=== PATIENT | female | born 1980 | race Caucasian/White ===

== ENCOUNTER → 2021-10-15 10:04 | Outpatient (CLI) | payer OTHER, SELFPAY ==
[2021-10-16 14:17] LABS: HSV 2 IGG AB 2.81 index (0.00-0.90); HSV1IGG < 0.91 index (0.00-0.90)
== END ==
PROVIDERS: PCP Physician Assistant; Referring Provider Obstetrics & Gynecology; Visit Provider Obstetrics & Gynecology
DX: N90.89 Other specified noninflammatory disorders of vulva and perineum (principal)
CPT/HCPCS: 36415; 86695; 86696

== ENCOUNTER → 2022-11-20 06:40 | Outpatient (CLI) | payer OTHER, SELFPAY ==
--- NOTE | 2022-11-20 06:41 | DI.US.S_ITS ---
PROCEDURE: US PELVIC COMPLETE INDICATIONS: IRREGULAR HEAVY MENSES TECHNIQUE: Real-time scanning was performed of the pelvic organs, with image documentation. Additional endovaginal scanning was necessary due to incomplete visualization of the adnexal and endometrial structures by transabdominal scanning. COMPARISON: None. FINDINGS: Uterus: Uterus is anteverted and normal in size at 10.8 x 6.1 x 7.7 cm. The myometrium is homogeneous. The endometrium measures 9.6 mm combined thickness. Ovaries: The right ovary measures 3.6 x 2.1 x 3.2 cm, with a calculated ovarian volume of 12.3 cc. The left ovary measures 3.3 x 2.1 x 3.5 cm, with a calculated ovarian volume of 13 cc. The ovaries have a normal sonographic appearance. Less than 12 follicles can be seen in each ovary. No adnexal masses are seen. Other: No pathologic free abdominal or pelvic fluid. IMPRESSION: Unremarkable pelvic ultrasound in a premenopausal patient. We strive to produce accurate, complete, and clear reports of imaging services. To assist us in improving patient care, this report was composed using standard report templates and voice recognition software. Therefore, it may contain abnormal punctuation, insertions and/or omissions. Occasional wrong-word or sound-alike substitutions may occur. Though we review the report and make efforts to correct it, we do recommend that the report be read carefully in proper context to recognize any text inaccuracies. Dictated by: Tamia Seymour M.D. on 11/20/2022 at 11:10 Approved by: Tamia Seymour M.D. on 11/20/2022 at 11:11
== END ==
PROVIDERS: PCP Physician Assistant; Referring Provider Obstetrics & Gynecology; Visit Provider Obstetrics & Gynecology
DX: N92.6 Irregular menstruation, unspecified (principal)
CPT/HCPCS: 76830; 76856

== ENCOUNTER 2023-08-17 06:37 | Day surgery (SDC) | payer OTHER, SELFPAY ==
[2023-08-17] VITALS (8 sets, daily range): BP systolic 115–125; BP diastolic 73–79; PULSE 76–113; RESP 10–26; TEMP 36.3–37.1; O2SAT 99–100; BMI 32.4
--- NOTE | 2023-08-17 | PATH_ITS ---
[facility] Accession Number: [id number] No. of containers..01 Tissue . 01 Material submitted: . uterus - UTERUS AND BILATERAL FALLOPIAN TUBES . 01 Diagnosis: UTERUS AND BILATERAL FALLOPIAN TUBES; HYSTERECTOMY AND BILATERAL SALPINGECTOMY (WITHOUT CERVIX OR OVARIES): Benign uterine tissue fragments, 185 grams in aggregate. Proliferative phase endometrium without significant cytologic atypia, hyperplasia or malignancy. Benign leiomyoma without significant cytologic atypia, necrosis, or distinct mitotic activity. Focal area with possible adenomyosis. Benign fallopian tubes and paratubal cysts. [facility] 08/19/2023 1548 Local . 01 Electronically signed: . Jonathon Gay MD, Pathologist NPI- [id number] . 01 Gross description: . Received in formalin with two identifiers and uterus and bilateral fallopian tubes, is a fragmented uterus (185 grams, 13.8 x 11.2 x 4.4 cm in aggregate), with two unoriented, fimbriated fallopian tubes (5.6 x 0.5 cm and 5.5 x 0.7 cm), with no cervix or additional adnexa. . The serosa is jones and wrinkled with no evidence of hemorrhage or adhesions identified. The endometrium is jones to brown and velvety averaging 0.1 cm thick. The myometrium is jones and trabecular with a single well-circumscribed white whorled nodule identified measuring 0.9 cm in greatest dimension with no hemorrhage or necrosis identified. . The tubes have violaceous, smooth serosa with a cystic structure measuring 0.5 cm in greatest dimension filled with cloudy serous fluid located on the longer tube. Sectioning reveals unremarkable stellate lumen. . Clinical Research Specialist sections are submitted as follows: A1. Endometrium. A2: Serosa. A3: Nodule. A4: Longer fallopian tube to include one-half of bisected fimbriae and cross-sections. A5: [place] fallopain tube to include one-half of bisected fimbriae and cross-sections. ([id number]) /MCKAYLA 08/18/2023 0955 Local . 01 Pathologist provided ICD-10: N92.0 . 01 CPT . 070932 Specimen Comment: A courtesy copy of this report has been sent to [phone] Performed at: 01 [facility] [address] [place] [address], [place], [place] [id number] MD Tone Childs MD Phone: [phone]
[2023-08-17] MEDS: LACTATED RINGERS 1,000 ML 42 ML IV ×2 (07:20→10:35)
[2023-08-17] MEDS: ACETAMINOPHEN 325 MG TABLET 975 MG PO (07:24)
--- NOTE | 2023-08-17 07:37 | PM.PREOP ---
Pre-operative Note Interval Note History & Physical reviewed/Exam performed by Physician: Yes Changes to H&P: No H&P completed within 30 days and has changed as indicated here:: 08/12/23
[2023-08-17] MEDS: SCOPOLAMINE 1 PATCH TOP (07:41)
[2023-08-17] MEDS: CEFAZOLIN 2 GM/100 ML PREMIX 100 ML IV (08:03)
--- NOTE | 2023-08-17 08:24 | SUR.OPER ---
Lithotomy on padded OR bed. [place] Pad Positioner under torso. Head on pillow, arms padded and tucked at sides. Legs secured in padded yellow fins stirrups.
[2023-08-17] MEDS: ROPIVACAINE 0.2% PF 2 MG/ML 10ML AMP 20 ML INJ (08:33)
[2023-08-17] MEDS: BUPIVACAINE 0.5% (PF) 30 ML, EPINEPHrine 0.15 MG INJ (08:33)
--- NOTE | 2023-08-17 09:19 | P.OP_ITS ---
Operative Date/Time/Diagnoses Date of procedure: 08/17/23 Time of procedure: 09:19 Pre-op diagnosis: Menorrhagia Post-op diagnosis: same Procedure & Clinicians Procedure: Procedures Operation Date: 08/17/23 07:45 Actual Procedure Side Surgeon p Laparoscopic Supracervical Hysterectomy with bilateral salpingectomy Kajal Nguyen MD Indications: 43-year-old with menorrhagia Surgeon: Kajal Nguyen Automobile Repossessor: Stefania Stephenson Anesthesia Type: General and Local Operative Notes Findings: 10 week size anteverted uterus Normal tubes and ovaries Normal appendix Normal liver and gallbladder Closure Type: primary Specimen(s): left tube, right tube and uterus Applied: catheter (Removed at the end of the case) Estimated blood loss (mL): 25 Blood products transfused: none Procedure in detail: The patient was taken to the operating room where she was placed in the dorsal supine position. After adequate general endotracheal anesthesia was achieved, she was placed in the dorsal lithotomy position, and prepped and draped in the usual sterile fashion. A timeout was performed. A bivalve speculum was placed into the vagina and the anterior lip of the cervix grasped with a single-tooth tenaculum. The cervical os was sequentially dilated until the ZUMI uterine manipulator could pass easily into the endometrial cavity. The single-tooth tenaculum was removed from the anterior lip of the cervix, and the bivalve speculum was removed from the vagina. Attention was then turned to the abdomen where 6 mL of half percent Marcaine with epinephrine were injected in the umbilical fold. A 5 mm incision was made. The Verhees needle was placed into the peritoneal cavity, and its placement confirmed by aspiration and drop test. The Verees needle was removed. A 5 mm trocar was placed without difficulty. 2 other incisions were made 4 cm lateral to the umbilicus after 5 mL of half percent Marcaine with epinephrine were injected. These were 5 mm incisions. Two 5 mm trocars were placed under direct visualization. The right tube was grasped with an atraumatic grasper. Using the Powerseal, the mesosalpinx was cauteried and cut all the way down to the cornua of the uterus. The tube was amputated and removed through the lateral trocar. The cornua of the uterus was then grasped with an atraumatic grasper. The utero-ovarian ligaments were cauterized and cut. The round ligament and broad ligament was cauterized and cut with Powerseal. Hemostasis was achieved. The bladder flap was created using the Powerseal with cautery and cut. All of this was repeated on the le ft side and the bladder taken down off the lower uterine segment and cervix. Using the Linaloop, the cervix was amputated from the uterus 2 cm above the uterosacral ligaments, after the ZUMI uterine manipulator was removed from the uterus. There was a small amount of bleeding noted from the posterior edge of the cervix, and this was cauterized for hemostasis. The endocervical canal was cauterized with the spatula cautery. A moistened sponge stick was placed into the vagina. 6 mL of half percent Marcaine with epinephrine were injected above the pubic symphysis. A 12 mm trocar was placed. An Endobag was placed through the suprapubic trocar and the uterus was placed into the Endobag. The trocar was removed and the edges of the bag were brought through the skin. The uterus was grasped with a Kraig. The Grzegorz was placed into the endobag. The uterus was hand morcellated in approximately 10 pieces. The Endobag was removed from the peritoneal cavity with the Grzegorz. The pelvis was copiously irrigated with warm normal saline. No bleeding was noted. The instruments were removed from the abdomen. The CO2 was allowed to escape. The suprapubic incision was closed on the fascia with 0 Vicryl. All of the incisions were closed with 4-0 Biosyn in a subcuticular fashion. The moistened sponge stick was removed from the vagina. Sponge, lap, and instrument counts were correct x-2. The patient tolerated the procedure well, was taken to PACU in stable condition. Complications: none Post-operative Condition: stable Disposition: PACU Plan for aftercare: Home after recovery
[2023-08-17] MEDS: OXYCODONE IR 5 MG TABLET PO (09:53)
[2023-08-17] MEDS: ONDANSETRON 4 MG/2 ML INJ IV (10:29)
[2023-08-17] MEDS: HYDROMORPHONE 1 MG INJ IV (10:34)
== END 2023-08-17 11:20 | disposition home or self-care (01) ==
LOC: OR 06:37 → AC 06:38
PROVIDERS: PCP Physician Assistant; Referring Provider Obstetrics & Gynecology; Visit Provider Obstetrics & Gynecology
PROC: 0UT94ZL Resection of Uterus, Supracervical, Percutaneous Endoscopic Approach (ICD-10-PCS; CPT 58542; principal; 2023-08-17 07:45)
DX: N92.0 Excessive and frequent menstruation with regular cycle (principal); D25.9 Leiomyoma of uterus, unspecified; N83.8 Other noninflammatory disorders of ovary, fallopian tube and broad ligament
CPT/HCPCS: 58542; J0171; J0690; J1100; J1170; J1885; J2250; J2405; J2704; J2795; J3010

== ENCOUNTER 2024-08-08 10:02 | Day surgery (SDC) | payer OTHER, SELFPAY ==
[2024-08-08] MEDS: LACTATED RINGERS 1,000 ML 150 ML IV (11:22)
[2024-08-08 11:27] VITALS: BP 121/75; PULSE 74; RESP 16; TEMP 36.7; O2SAT 100
--- NOTE | 2024-08-08 11:27 | PM.OP.COLON ---
Operative Date/Time/Diagnoses Date of procedure: 08/08/24 Pre-op diagnosis: For screening colonoscopy with family history of colon polyps in her father Post-op diagnosis: same Procedure & Clinicians Same procedure as scheduled: Yes (colonoscopy) Indications: Family history of colon polyps Surgeon: Natalie Watts Procedure Notes Procedure in detail: After informed consent was obtained the patient was placed in left lateral decubitus position. The video colonoscope was introduced the rectum slowly advanced cecum. Preparation was good. On slow withdrawal mucosa was carefully examined. The scope was removed. The patient tolerated procedure well. Blood loss none Complications none Sedation mac Findings 1. Normal colonoscopy to cecum Patient should have follow-up colonoscopy in 10 years
--- NOTE | 2024-08-08 11:28 | P.HP_ITS ---
History of Present Illness History of Present Illness Date Patient Seen: 08/08/24 Chief complaint: SDC Narrative: For screening colonoscopy with family history of colon polyps in her father [facility] Medical History Migraines Shoulder pain Chicken pox (~1985) Kidney stones (~2015) Family History Mother Stroke Social History household members: spouse Smoking Status: Never smoker alcohol intake: never Meds Home Medications and Allergies Home Medications Medication Instructions Recorded Confirmed Type valacyclovir 500 mg tablet 500 mg PO BID #10 tabs 09/04/23 Rx (Valtrex) Allergies Allergy/AdvReac Type Severity Reaction Status Date / Time Sulfa (Sulfonamide Allergy Mild rash Verified 08/08/24 11:23 Antibiotics) [SULFA (SULFONAMIDE ANTIBIOTICS)] Exam Narrative Exam Narrative: Oropharynx free of lesions Chest clear to auscultation percussion Cardiac exam reveals no S3 or murmur Assessment & Plan Assessment & Plan narrative: For screening colonoscopy with family history of colon polyps. Need for colonoscopy. Risks, benefits, alternatives have been explained. Time-Based Coding :: [TOTAL MINUTES] spent with patient and on the chart (including review of chart, obtaining history, exam, reviewing outside data, placing orders, documenting exam and treatment plan, and counseling patient) on [DATE]. 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
[2024-08-08 12:18] VITALS: BP 122/68; PULSE 75; RESP 16; TEMP 36.3; O2SAT 100
[2024-08-08 12:22] VITALS: BP 118/69; PULSE 80; RESP 12
[2024-08-08 12:28] VITALS: BP 127/77; PULSE 76; RESP 12; O2SAT 100
[2024-08-08 12:31] VITALS: BP 127/79; PULSE 79; RESP 12; O2SAT 99
== END 2024-08-08 12:41 | disposition home or self-care (01) ==
PROVIDERS: PCP Physician Assistant; Referring Provider Internal Medicine Gastroenterology; Visit Provider Internal Medicine Gastroenterology
PROC: 0DJD8ZZ Inspection of Lower Intestinal Tract, Via Natural or Artificial Opening Endoscopic (ICD-10-PCS; CPT 45378; principal; 2024-08-08 11:30)
DX: Z12.11 Encounter for screening for malignant neoplasm of colon (principal); Z83.719 Family history of colon polyps, unspecified
CPT/HCPCS: 45378; J2405; J2704